=== PATIENT | female | born 1930 | race Caucasian/White ===

== ENCOUNTER 2017-05-24 07:29 | Outpatient (CLI) | payer MEDICARE ==
--- NOTE | 2017-05-24 09:06 | ULT ---
ULTRASOUND ABDOMEN: Date: 05/24/17 HISTORY: Abdominal pain. FINDINGS: The pancreas and aorta are not visualized due to overlying bowel gas. The liver, spleen, and kidneys are unremarkable. No free fluid is seen. The patient is post cholecystectomy. The common duct measure s 12.0 mm in diameter. IMPRESSION: Exam limited due to bowel gas. Please see above. POS: CARITO
== END 2017-05-24 07:30 | disposition home or self-care (01) ==
LOC: ULT 07:29
PROVIDERS: ATTEND Internal Medicine Gastroenterology
DX: R10.9 Unspecified abdominal pain (principal); M35.3 Polymyalgia rheumatica
CPT/HCPCS: 76700

== ENCOUNTER 2017-06-14 08:37 | Outpatient (CLI) | payer MEDICARE ==
--- NOTE | 2017-06-14 10:31 | CT ---
CT ABDOMEN AND PELVIS WITH CONTRAST: Date: 06/14/17 HISTORY: Villous adenoma of colon, weight loss. COMPARISON: None. FINDINGS: Mild atelectasis in the left lung base No pericardial effusion. No significant pleural effusion. No s ignificant pleural effusion. Prior cholecystectomy and reservoir effect of extrahepatic biliary system. Spleen is unremarkable. Li yobany is unremarkable. Fat-containing periumbilical hernia. Prior hysterectomy. No dilated loops of large or small bowel. Aorta is tortuous with the dextroscoliosis of the spine. No compression fracture. There is extensive scarring of the right kidney. No hydronephrosis Nonobstructive 5 mm calculus intra polar right kidney. IMPRESSION: 1. No acute inflammatory process of abdomen or pelvis. 2. Multifocal areas of scarring in the right kidney with dystrophic calcifications. 3. Small periumbilical fat-containing hernia. 4. Prior cholecystectomy with reservoir effect of extrahepatic biliary system. POS: CARITO
== END 2017-06-14 08:38 | disposition home or self-care (01) ==
LOC: CT 08:37
PROVIDERS: ATTEND Internal Medicine Gastroenterology
DX: D37.4 Neoplasm of uncertain behavior of colon (principal); A04.8 Other specified bacterial intestinal infections; R10.13 Epigastric pain; R63.4 Abnormal weight loss; K42.9 Umbilical hernia without obstruction or gangrene; N20.0 Calculus of kidney; Z90.49 Acquired absence of other specified parts of digestive tract
CPT/HCPCS: 74177